=== PATIENT | female | born 1975 | race Caucasian/White ===

== ENCOUNTER 2016-09-20 18:00 | Emergency (ER) | payer BC ==
[~2016-09-20] VITALS: Ht 162.5 cm; Wt 66.7 kg
[~2016-09-20 18:00] MED LIST: AMBIEN5 MG PO; BIRTH CONTROL1 EAC1 PO; DIFLUCAN150 MG PO; FLUOXETINE10 M1 PO; OMNICEF300 MG PO; PERCOCET 325 MG1 TA2 PO; PROAIR HFA8.5 GM INH; PROZAC20 MG PO; VALIUM10 MG PO; ZOFRAN ODT4 MG SL
[2016-09-20 18:01] VITALS: BP 138/66
[2016-09-20] MEDS ORDERED: NAPROSYN500 MG PO (18:12)
[2016-09-20] MEDS ORDERED: KEFLEX500 M1 PO (18:12)
== END 2016-09-20 18:43 | disposition home or self-care (01) ==
LOC: ED 18:00
DX: S61.210A Laceration without foreign body of right index finger without damage to nail, initial encounter (principal); R03.0 Elevated blood-pressure reading, without diagnosis of hypertension; Z79.899 Other long term (current) drug therapy; W25.XXXA Contact with sharp glass, initial encounter; Y93.89 Activity, other specified; Y92.89 Other specified places as the place of occurrence of the external cause; Y99.9 Unspecified external cause status

== ENCOUNTER → 2022-09-16 | Outpatient (CLI) | payer BC ==
[~2022-09-16] MED LIST changes: +KEFLEX500 M1 PO; +NAPROSYN500 MG PO
== END | disposition home or self-care (01) ==
LOC: LAB 11:34 → RAD 11:34
PROVIDERS: ATTEND Nurse Practitioner Family
DX: M51.37 Other intervertebral disc degeneration, lumbosacral region (principal); G89.29 Other chronic pain; G47.00 Insomnia, unspecified; F41.9 Anxiety disorder, unspecified; J45.20 Mild intermittent asthma, uncomplicated; M48.07 Spinal stenosis, lumbosacral region; M48.02 Spinal stenosis, cervical region

== ENCOUNTER → 2022-09-19 | Outpatient (CLI) | payer BC | END | disposition home or self-care (01) | LOC: CT 07:55 | PROVIDERS: ATTEND Nurse Practitioner Family | DX: M51.36 Other intervertebral disc degeneration, lumbar region (principal); M48.061 Spinal stenosis, lumbar region without neurogenic claudication; M48.07 Spinal stenosis, lumbosacral region ==